=== PATIENT | male | born 1950 | race Caucasian/White ===

== ENCOUNTER 2022-09-21 17:29 | Emergency (ER) | payer MEDICARE, BC, SELFPAY ==
[2022-09-21 17:41] VITALS: BP 144/66; PULSE 82; RESP 18; TEMP 37.7; O2SAT 98; BMI 23.9
--- NOTE | 2022-09-21 18:56 | ED.GENADULT ---
HPI - General Adult General Chief complaint: Cough Stated complaint: COVID+ Time Seen by Provider: 09/21/22 18:42 Source: patient Mode of arrival: ambulatory Limitations: no limitations History of Present Illness HPI narrative: 72-year-old male that reports no major chronic long-term health problems presents to the emergency department after he began having a cough yesterday. Cough persisted through the morning, he took a COVID swab this afternoon. It was positive. He called the nurse line for advice in the let him know that he would need to be seen by a physician if he was interested in PACs lipid treatment. Unfortunately on a Saturday evening, it regular provider was not available. He reports to me that he had a full physical performed only 2 days ago. Unfortunately, the my chart system has been very glitchy and he has not been able to access his records. We try again here in the room and he is not able to pull up his lab values. He reports that he does not have a history of chronic kidney disease and does not take any medications that would impair his renal function. Overall, he states he is feeling well. He is fully vaccinated including boosters and very and boosters for COVID-19. He does not smoke, does not have a history of COPD or obesity. Maintains an active lifestyle including playing tennis for 2 hours this morning. He denies any dyspnea. He does note that he has a low-grade fever here in the office that he had not previously noted. States that his past medical history is otherwise benign, no chronic disease, no chronic prescription medications, no allergies. Socially he is a nonsmoker. ROS is only notable for the low-grade fever and mild cough, otherwise negative times 12 systems. Related Data Previous Rx's Medication Instructions Recorded nirmatrelvir 300 mg (150 mg See Rx Instructions PO .COMPLEX 09/21/22 x2)-ritonavir 100 mg tablet,dose #30 ea pack(EUA) (Paxlovid) Allergies Allergy/AdvReac Type Severity Reaction Status Date / Time codeine Allergy Mild Verified 09/21/22 17:46 PFSH PFS Social History Smoking Status: Unknown if ever smoked How often do you have a drink containing alcohol: 4 or more times a week How many standard drinks containing alcohol do you have on a typical day: 1 or 2 How often do you have six or more drinks on one occasion: Never AUDIT-C Alcohol total score: 4 Non-prescribed substance use: denies use Exam Const: Vital Signs, click to edit/add: Vital Signs - 24 hr 09/21/22 17:41 09/21/22 19:20 Temperature 99.9 F H Pulse Rate [Pulse Oximeter] 82 82 Respiratory Rate 18 Blood Pressure [Ri ght Upper Arm] 144/66 H 121/59 L Pulse Oximetry 98 96 Oxygen Delivery Me thod Room Air Room Air Documenting provider has reviewed patient's vital signs: yes Common normals: no apparent distress General appearance: cooperative, comfortable and well kempt HENMT: Common normals: normocephalic Head and scalp: normocephalic Eye: Common normals: conjunctivae normal and no scleral icterus Conjunctiva: conjunctiva(e) normal Neck & C-Spine: Common normals: full ROM and no lymphadenopathy Resp: Common normals: normal respiratory effort, no use of accessory muscles and clear to auscultation bilaterally Effort & inspection: able to speak in complete sentences Auscultation: clear to auscultation bilaterally Cardio: Common normals: regular rate, regular rhythm, S1 normal heart sound, S2 normal heart sound and peripheral pulses 2+ throughout Rate: regular rate Rhythm: regular rhythm Heart sounds: S1 normal and S2 normal Peripheral pulses: pulses 2+ throughout Neuro: Motor exam: no tremor noted and no movement abnormalities noted Psych: Appearance: well kempt Mood and affect: euthymic mood Insight: insight good Judgement: judgment good Course Vital Signs Vital signs: Initial Vital Signs Temperature 99.9 F H 09/21/22 17:41 Temperature Source Temporal Artery Scan 09/21/22 17:41 Pulse Rate 82 09/21/22 17:41 Respiratory Rate 18 09/21/22 17:41 Blood Pressure 144/66 H 09/21/22 17:41 Blood Pressure Mean 92 09/21/22 17:41 Blood Pressure Position Supine 09/21/22 17:41 Pulse Oximetry 98 09/21/22 17:41 Oxygen Delivery Method 09/21/22 17:41 Vital Signs Temperature 99.9 F H 09/21/22 17:41 Pulse Rate 82 09/21/22 17:41 Respiratory Rate 18 09/21/22 17:41 Blood Pressure 144/66 H 09/21/22 17:41 Pulse Oximetry 98 09/21/22 17:41 Oxygen Delivery Method 09/21/22 17:41 Temperature 99.9 F H 09/21/22 17:41 Pulse Rate 82 09/21/22 19:20 Respiratory Rate 18 09/21/22 17:41 Blood Pressure 121/59 L 09/21/22 19:20 Pulse Oximetry 96 09/21/22 19:20 Oxygen Delivery Method 09/21/22 19:20 Medical Decision Making MDM Narrative Medical decision making narrative: Point of care creatinine reviewed, 1.2. Based on height, age, creatinine clearance is still over 60. Recommend full-dose Paxlovid. He was hoping for this also. Discussed side effects, indications to come back to the emergency department. He verbalizes understanding and agreement and has no further concerns Lab Data Lab results reviewed: Yes I reviewed the patient's lab results Labs: Lab Results 09/21/22 Range/Units 19:16 POC Creatinine 1.2 (0.6-1.3) mg/dl Discharge Plan Discharge Clinical Impression: COVID-19 Patient Disposition: Home, Self-Care Condition: Stable Instructions: COVID-19 (Coronavirus Disease 2019) (ED) Additional Instructions: Please seed cone picker the Paxlovidand start taking the medication right away. As we discussed, nausea and a metal taste in your mouth are very common. Because you are vaccinated, you are low risk for complications, but not impossible. Please come back to the emergency department if you are experiencing any severe shortness of breath or weakness. Please continue to quarantine during the entire time that you are on the Paxlovid Activity Level: No Restrictions Discharge Diet: Regular Prescriptions: New Paxlovid (EUA) 300 mg (150 mg x 2)-100 mg tablets,dose pack See Rx Instructions .ROUTE .COMPLEX Qty: 30 0RF Rx Instructions: take TWO 150 mg tablets of nirmatrelvir with ONE 100 mg tablet of ritonavir twice daily for 5 days Stand Alone Forms: [employer] Info Instructions
[2022-09-21 19:16] LABS: Creatinine, Point-of-Care* 1.2 mg/dl (0.6-1.3)
[2022-09-21 19:20] VITALS: BP 121/59; PULSE 82; O2SAT 96
== END 2022-09-21 19:42 | disposition home or self-care (01) ==
LOC: ED 19:37
PROVIDERS: Emergency Provider Family Medicine
DX: U07.1 COVID-19 (principal)
CPT/HCPCS: 82565; 99282; 99284

== ENCOUNTER 2023-06-03 12:46 | Outpatient (CLI) | payer MEDICARE, BC, SELFPAY ==
--- NOTE | 2023-06-03 13:00 | MR_ITS ---
EXAM: MRI of the RIGHT SHOULDER, without contrast CLINICAL INFORMATION: Male, 73 years old, with shoulder pain. INDICATION: Evaluate for rotator cuff tear PRIOR SURGERY: None reported. PLAIN FILMS: None available. COMPARISONS: No prior MRIs available. TECHNICAL INFORMATION: Using a 1.5T MR scanner and a localizing surface coil: Coronals: PD, T2, STIR Sagittals: PD, T2 Axials: PD, T2 SEDATION: None CONTRAST: None FINDINGS: Bones: Proximal humerus: No fracture or marrow edema/pathology. Degenerative marrow edema in the superior humeral head. Glenoid: No fracture or marrow edema/pathology. Degenerative marrow edema and cystic change in the inferior glenoid. No osseous Bankart lesion. Rotator cuff and muscles/tendons: Supraspinatus: Moderate supraspinatus tendinosis with poorly defined interstitial delamination and low-grade tearing, without high-grade tearing, retraction, or muscle belly atrophy. Infraspinatus: Mild infraspinatus tendinosis without rotator cuff tear or muscle belly atrophy. Teres minor: Teres minor distal tendon is intact with advanced atrophy of the muscle belly. No well-defined mass is seen in the quadrilateral space. Subscapularis: Mild to moderate subscapularis tendinosis without rotator cuff tear or muscle belly atrophy. Deltoid: No strain or atrophy. Coracoacromial arch: Acromion morphology: The acromion has type II morphology. No discrete subacromial osseous spur or os acromiale. Acromiohumeral space: The acromiohumeral space is within normal limits. Coracohumeral space: The coracohumeral space is within normal limits. Acromioclavicular joint: Joint: Moderate AC joint arthrosis with mild inferior osteophytosis which contacts the underlying supraspinatus. Ligaments: Coracoclavicular ligaments are intact. Bursae: Subacromial-subdeltoid: Mild subacromial/subdeltoid bursitis Subcoracoid: No convincing subcoracoid bursal thickening/bursitis. Biceps tendon: The long head of the biceps tendon is present within the bicipital groove. The intra-articular and extra-articular segments are intact without tendinosis, tenosynovitis, or displacement. Glenohumeral joint: Effusion/cyst: Trace glenohumeral joint effusion. Articular cartilage: Humeral head: Full-thickness chondral loss is seen along the superior and superomedial aspect of the humeral head measuring up to 2.8 cm in greatest dimension. Moderate inferomedial humeral head osteophytic spurring. Glenoid: There is grade III/IV chondromalacia along the anterior and superior aspect of the glenoid articular cartilage. Mild to moderate circumferential osteophytic spurring. Loose bodies: No discrete intra-articular body within the joint. Labrum:?Circumferential degeneration, fraying, and tearing of the glenoid labrum. No other definite evidence for labral tear. No paralabral ganglion cyst is identified. Inferior glenohumeral ligament/axillary pouch:?Intact. The axillary pouch is normal in thickness and signal. No evidence of adhesive capsulitis or capsular injury. IMPRESSION: 1. Relatively advanced glenohumeral osteoarthritis as described above with broad-based full-thickness and near full-thickness chondral loss, marrow reactive changes, and osseous spurring. Trace joint effusion. 2. Moderate supraspinatus tendinosis with poorly defined low-grade interstitial delamination tearing, without high-grade tearing or retraction. 3. Mild to moderate infraspinatus and subscapularis tendinosis without rotator cuff tear. 4. Circumferential degeneration and tearing of the glenoid labrum 5. Moderate AC joint arthrosis with inferior osteophytosis. Mild subacromial bursitis. 6. No tendinopathy, tear, or displacement of the long head of the biceps tendon. [facility] Electronically signed on 06/04/2023 9:42:00 AM by Guadalupe Shabazz M.D.
== END 2023-06-03 12:47 | disposition home or self-care (01) ==
LOC: MRI 12:48
PROVIDERS: Visit Provider Orthopaedic Surgery
DX: M25.511 Pain in right shoulder (principal); M75.101 Unspecified rotator cuff tear or rupture of right shoulder, not specified as traumatic; M19.011 Primary osteoarthritis, right shoulder; M75.51 Bursitis of right shoulder
CPT/HCPCS: 73221

== ENCOUNTER 2023-07-22 14:30 | Outpatient (RCR) | payer MEDICARE, BC, SELFPAY ==
--- NOTE | 2023-07-01 15:56 | PT.OPEX ---
PT [place] Outpatient Eval PT [facility] Outpatient Eval Start: 07/01/23 08:54 Freq: Status: Active Protocol: Document 07/01/23 08:55 ENM (Rec: 07/01/23 15:32 ENM [id number]) E-signed By Aileen Adan, DPT Physical Therapy Outpatient Evaluation Insurance Information Recert Due Date 09/23/23 Insurance Name Medicare B Medical Diagnosis primary osteoarthritis, right shoulder Treating Diagnosis right shoulder pain ,decreased shoulder ROM, decreased shoulder and scapular strength Referring MD Soni Subjective Subjective Patient presents to PT for complaint of right shoulder pain. Pains have been present for years but suddenly got worse. He was trying to do some yoga stretches that maybe started the pain. He plays tennis 3 days a week. The pains are a little worse after playing but with being careful he is ok. The pains are more in the back of the shoulder. Played this morning and still feels some soreness now. It was more painful a bit ago where he couldn't sleep on it at night but after resting it pains have improved . The pain doesn't seem to stop him from doing anything now but when it was really sore he couldn't lift the arm to do his hair. With tennis backhand hits or overhead serves seem to be the most irritating. 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 Objective Other/Pertinent Objective ROM: AROM shoulder flexion L 166 R 158 + for tightness abduction L 174 R 160 + for pain at end range IR L T3 R T12 (L 62 degs R 45 degs) ER L T5 R T3 (L 68 degs R 60 degs) Strength: shoulder flexion 4-/5 B shoulder abduction 4-/5 B shoulder IR0 4/5 R shoulder ER0 4-/5 B scapular I 4-/5 scapular T 3+/5 Palpation/joint mobility: posterior glide of GHJ hypomobile B, greater hypomobility with inferior glide on R compared to L stiffness throughout thoracic spine with PAs no pain to palpation of shoulder musculature Special tests: neers - hua curtis - Functional Test Performed & Score SPADI:20/130 Assessment Assessment/Impression Patient is a 73 year old male presenting with right shoulder pain that has been present for years. Their primary complaint is of pain after playing tennis with backhand swings or overhead serves. Pains were significant a few weeks ago but subsided now with rest. Overall well managed and down to 2-3/10 at its worse. Upon assessment patients concordant pains brought on with end range shoulder flexion and end range shoulder abduction. No pains with shoulder MMT or special testing. Noted the most weakness with shoulder ER B, shoulder abduction B and middle trapezius B. He has difficulty with scapular activation to start but improves with reps. Noted a significant reduction in right shoulder internal rotation compared to contralateral side . Hypomobility noted with PAs throughout thoracic spine as well as with inferior glide of right GHJ. Rian would greatly benefit from skilled PT to address impairments stated above in order to perform all self cares/ADLs and recreational activities without significant discomfort or difficulty. Primary Functional Limitations backhand hit in tennis, overhead serve Plan of Care Rehabilitation Potential Good Physical Therapy Goals In 4-6 visits: 1. Patient will be IND with HEP and self management of symptoms 2. Patient will display pain free shoulder ROM within 5 degs of contralateral side in order to perform all self cares and ADLS without significant discomfort or difficulty 3. Patient will display improved global scapular strength to 4-/5 or greater for increased shoulder support with tennis activities 4. Patient will be able to serve overhead with less than 2/10 or shoulder pain following in order to continue playing tennis for cardiovascular fitness Coordination/Communication With Referral Source Treatment Plan/Direct Interventions Ice/Cold/Vasopneumatic,Joint Mobilization,Manual Therapy, Neuromuscular Re-ed,Self-Care/ Home Management,Therapeutic Activities,Therapeutic Exercises Frequency/Duration 1x a week for 6-7 weeks Patient Will Be Discharged From Therapy Completion of LTG(s), Independent w/HEP Evaluation Billing Untimed Code Treatment Minutes 31 Complexity Low Certification Information Initial Certification Date 07/01/23 Ending Certification Date 09/23/23 Provider Signature Shows Agreement With POC & Medical Necessity Physician Signature & Date Requested Please Sign/Date Here Physician Comment/Change : Physician NPI Number #
== END 2023-11-01 09:59 | disposition home or self-care (01) ==
PROVIDERS: Visit Provider Orthopaedic Surgery
DX: M19.011 Primary osteoarthritis, right shoulder (principal); M25.511 Pain in right shoulder; Z74.09 Other reduced mobility; R53.1 Weakness; Z51.89 Encounter for other specified aftercare
CPT/HCPCS: 97110; 97161

== ENCOUNTER 2024-09-02 10:05 | Outpatient (CLI) | payer MEDICARE, BC, SELFPAY ==
--- NOTE | 2024-09-02 10:15 | MR_ITS ---
[address] [address] Phone:?[phone] Fax:?[phone] Referring Physician Information: Luiz Soni M.D. [address] [facility] [address] Phone:?[phone] Fax:?[phone] Patient:Chelsi Jaramillo D.O.B:?1950 Sex:?Male Phone:?[phone] [facility] MRN:?[id number] Exam Date:?09/02/2024 EXAM: MRI of the LEFT KNEE, without contrast CLINICAL: Evaluate for meniscal tear. COMPARISONS: X-rays dated 08/26/2024. TECHNICAL: Multiplanar multisequence MRI of the left knee was obtained. SEDATION: None. CONTRAST: None. FINDINGS: Ligaments: ACL: There is mucoid degeneration of the ACL, without evidence of ligament disruption. PCL: Intact and unremarkable. MCL: Intact and unremarkable. LCL: Intact and unremarkable. Posterolateral corner: Popliteus, biceps femoris, iliotibial band, and the popliteofibular ligament appear intact. Posteromedial corner: Semimembranosus, pes anserine tendons and posterior oblique ligament appear intact. Extensor mechanism: Patellar tendon: Mild tendinosis of the proximal patellar tendon. No patellar tendon tear. Quadriceps tendon: Intact, without tendinopathy. Retinacula: Medial and lateral retinacula are intact. Fat pads: Unremarkable infrapatellar Hoffa's, quadriceps and prefemoral fat pads. Patellofemoral joint: Patella: No significant chondromalacia. Trochlea: No significant chondromalacia. Medial compartment: Medial meniscus: There is complex tearing throughout the posterior horn extending into the posterior root and into the body segment. There is 3 mm of medial extrusion of the peripheral body segment medial meniscus. Mild displacement of torn meniscal tissue along the superior aspect of the posterior root on sagittal series 6 image 14. Medial cartilage: There is full-thickness chondral loss involving the medial femoral condyle and medial tibial plateau with associated subchondral reactive marrow edema. Lateral compartment: Lateral meniscus: No evidence of discrete meniscal tear or meniscal displacement. Lateral cartilage: No significant chondromalacia. Knee joint: Effusion: At least moderate sized partially visualized left knee effusion. Intra-articular bodies:?No convincing bodies identified. Popliteal cyst: None. Bones: No suspicious bone marrow signal alteration or fracture line. There is increased edema within the anterior knee subcutaneous soft tissues with minimal prepatellar bursitis. IMPRESSION: 1. Tearing of the medial meniscus as above with mild displacement of torn meniscal tissue along the superior aspect of the posterior root medial meniscus. Approximately 3 mm of medial extrusion of the peripheral body segment medial meniscus. 2. Full-thickness chondral loss involving the medial compartment cartilage with underlying subchondral reactive marrow edema. 3. Mucoid degeneration of the ACL. Ligamentous structures otherwise appear intact. 4. At least moderate sized partially visualized joint effusion. [facility] Electronically signed on 09/03/2024 7:56:00 AM by Kelechi Lowry D.O.
== END 2024-09-02 10:06 | disposition home or self-care (01) ==
PROVIDERS: Visit Provider Orthopaedic Surgery
DX: M25.562 Pain in left knee (principal); S83.222A Peripheral tear of medial meniscus, current injury, left knee, initial encounter; M25.462 Effusion, left knee
CPT/HCPCS: 73721